=== PATIENT | female | born 1945 | race Caucasian/White ===

== ENCOUNTER 2016-10-08 13:37 | Inpatient (IN) | payer MEDICAID ==
[2016-03-30 12:30] VITALS: Ht 160 cm; Wt 74.8 kg
[~2016-10-08] VITALS: Ht 160 cm; Wt 74.8 kg
[~2016-10-08 13:37] MED LIST: AMLO5TAB4 PO; ASPI-1063 PO; ATEN100T44 PO; CAT.1 PO; CHOL500037 PO; DABI150C PO; DILT120C89 PO; FERR240T5 PO; GLU500 PO; HYDR25TA4 PO; LABE200T28 PO; LATA2.5D6 OP; LIP20 PO; LOSA100T11 PO; MEMA28CA PO; MULT-1164 PO; OMEP20CA10 PO; PRED20TA PO
[2016-10-08 13:50] VITALS: BP 200/79; PULSE 65; RESP 15; TEMP 98.3; O2SAT 98
--- NOTE | 2016-10-08 13:50 | NUR ---
Placed in room 06. Placed on engine monitor, blood pressure machine and pulse oximeter. To gown for exam. Side rails up. Report given to CHICHI Lopez
--- NOTE | 2016-10-08 13:51 | NUR ---
Dr. Camarillo at bedside for evaluation
--- NOTE | 2016-10-08 14:00 | NUR ---
pt. brought in to the ER aaoX4 from home for high BP and feeling dizzy, as per daughter pt. has been feeling weak and dizzy since yesterday and BP has been high despite taking her as prescribed medications, as per daughter pt. vomited twice yesterday and vomited this morning, denies fall, denies sob, denies headache, clear speech, on radiographer cardiac catheterization
--- NOTE | 2016-10-08 14:00 | NUR ---
Medication reconciliation completed with information provided by RX bottles brought in by daughter. Any prior medication reconciliation on file was reviewed and corrected.
[2016-10-08] MEDS ORDERED: FERR-57 PO (14:09)
[2016-10-08] MEDS ORDERED: PANT20TA2 PO (14:09)
[2016-10-08] MEDS ORDERED: AMI200 PO (14:09)
[2016-10-08] MEDS ORDERED: MEMA7CAP PO (14:09)
[2016-10-08] MEDS ORDERED: FURO-149 PO (14:09)
[2016-10-08] MEDS ORDERED: APIX2.5T PO (14:09)
[2016-10-08] MEDS ORDERED: DILT120C89 PO (14:09)
[2016-10-08] MEDS ORDERED: LOSA100T11 PO (14:09)
--- NOTE | 2016-10-08 14:11 | NUR ---
Off unit for radiology via [facility]
--- NOTE | 2016-10-08 14:25 | NUR ---
pt. back to bed 6 from radiology
--- NOTE | 2016-10-08 14:31 | NUR ---
# 20 gauge angiocath placed to lac. Use of asceptic technique. Opsite placed over site. Blood return noted. Blood for lab drawn from site. Flushed with 10 cc of normal saline. No evidence of infiltration noted. Patient tolerated well.
[2016-10-08 14:42] LABS: BASOPHILS # (AUTO) 0.2 K/uL (0.0-0.2); BASOPHILS % (AUTO) 2.9 % (0.0-2.0); EOSINOPHILS # (AUTO) 0.1 K/uL (0.0-0.4); EOSINOPHILS % (AUTO) 1.5 % (0.0-4.0); HEMOGLOBIN 11.3 g/dL (12.0-16.0); LYMPHOCYTES # (AUTO) 0.5 K/uL (1.0-5.5); LYMPHOCYTES % (AUTO) 9.2 % (20.5-51.5); MEAN CORPUSCULAR HEMOGLOBIN 32 pg (27-31); MEAN CORPUSCULAR HGB CONC 34 % (32-36); MEAN CORPUSCULAR VOLUME 94 fL (79.0-98.0); MONOCYTES # (AUTO) 0.6 K/uL (0.0-1.0); MONOCYTES % (AUTO) 10.2 % (1.7-9.3); NEUTROPHILS # (AUTO) 4.1 K/uL (1.8-7.7); NEUTROPHILS % (AUTO) 76.2 % (40.0-70.0); PLATELET COUNT (AUTO) 342 K/uL (130-430); RED BLOOD CELL COUNT(AUTO) 3.51 MIL/uL (4.2-6.2); RED CELL DISTRIBUTION WIDTH 13.8 % (9.0-15.0); WHITE BLOOD COUNT (AUTO) 5.5 K/uL (4.8-10.8)
[2016-10-08 14:52] LABS: ANION GAP 10 (5-15); CALCIUM 8.9 mg/dL (8.4-11.0); CREATININE 1.04 mg/dL (0.55-1.30); GLUCOSE 126 mg/dL (70-99); SODIUM SERUM 124 mmol/L (136-145); UREA NITROGEN, BLOOD 13 mg/dL (8-21)
[2016-10-08 14:54] LABS: INR 1.1 (0.8-1.2); PROTHROMBIN TIME 11.4 SECS (9.5-12.5)
[2016-10-08 14:59] LABS: BILIRUBIN,URINE NEGATIVE (NEGATIVE); BLOOD, URINE NEGATIVE (NEGATIVE); CLARITY/URINE CLEAR (CLEAR); COLOR,URINE YELLOW (YELLOW); GLUCOSE,URINE NEGATIVE (NEGATIVE); KETONES,URINE NEGATIVE (NEGATIVE); LEUKOCYTE ESTERASE ,URINE NEGATIVE (NEGATIVE); NITRITE, URINE NEGATIVE (NEGATIVE); PH,URINE 6.5 (5.0-8.0); PROTEIN URINE 2+ (NEGATIVE); UROBILINOGEN,URINE 0.2 (0.2-1.0)
[2016-10-08 15:07] LABS: RBC,URINE 0-3 /HPF (0-3); WBC,URINE 0-3 /HPF (0-3)
[2016-10-08 15:08] LABS: BACTERIA,URINE FEW /HPF (None Seen); MUCUS,URINE None Seen /LPF (None Seen)
[2016-10-08 15:08] LABS: ALANINE AMINOTRANSFERASE 89 U/L (12-78); ALBUMIN 3.6 g/dL (3.4-4.8); ASPARTATE AMINOTRANSFERASE 49 U/L (10-37); FREE T4 (FREE THYROXINE) 1.1 ng/dL (0.6-1.6); TOTAL BILIRUBIN 0.6 mg/dL (0.0-1.0); TOTAL PROTEIN, SERUM 7.5 g/dL (6.4-8.3)
[2016-10-08 15:10] LABS: BARBITURATE, URINE NEGATIVE (NEG <=200); BENZODIAZEPINE, URINE NEGATIVE (NEG <=150); CANNABINOID, URINE NEGATIVE (NEG <=50); COCAINE, URINE NEGATIVE (NEG <=150); METHAMPHETAMINES SCREEN,URINE NEGATIVE (NEG <=500); OPIATE, URINE NEGATIVE (NEG <=100); PHENCYCLIDINE SCREEN,URINE NEGATIVE (NEG <=25); UR TRICYCLIC ANTIDEPRESSANTS NEGATIVE (NEG <=300); URINE AMPHETAMINE NEGATIVE (NEG <=500); URINE METHADONE NEGATIVE (NEG <=200); URINE OXYCODONE SCREEN NEGATIVE (NEG <=100); URINE PROPOXYPHENE SCREEN NEGATIVE (NEG <=300)
[2016-10-08 15:12] LABS: ALCOHOL, BLOOD < 3 mg/dL (<10)
[2016-10-08 15:14] LABS: POTASSIUM 2.6 mmol/L (3.5-5.1)
[2016-10-08 15:15] LABS: CHLORIDE 81 mmol/L (98-107)
[2016-10-08] MEDS ORDERED: POTASSIUM CHLORIDE 40 MEQ in NS 250 ML IV ONE (15:30)
[2016-10-08] MEDS ORDERED: POTASSIUM CHLORIDE 20 MEQ TAB.PRT.SR PO ONE (15:30)
--- NOTE | 2016-10-08 15:55 | NUR ---
dr. baker at bedside explaining the plan of care to pt. and family
[2016-10-08] MEDS ORDERED: POTASSIUM CHLORIDE 40 MEQ in NACL 0.9% 1,000 ML IV SCH (16:30)
--- NOTE | 2016-10-08 16:30 | NUR ---
Patient will be admitted to care of dr. Moralez. Admitted to med surg unit. Will go to room 112a. Belongings list completed by ailyn ortiz. Summary report printed. Report given to michelle staley.
--- NOTE | 2016-10-08 16:53 | NUR ---
ADMISSION NOTE Received patient from ER via gurney. Patient admitted with diagnosis of low pottasium, low sodium and bdy weakness. Patient is awake, alert, oriented X 3. Patient oriented to hospital room, call light, toileting, pain management and safety-teach back done. Patient informed that Ena will be her nurse and that their room number is 112A. Personal belongings checked and Belongings List documented. Call light within reach. Due to patient langueage barrier, able to understand simple icelandic but with difficulty commnunicating in icelandic.
--- NOTE | 2016-10-08 17:00 | NUR ---
patient came from er via rney. aao x 3. afebrile vss stable. temp is 99.1 respiration is 18, heart rate 70 O2sat 97 on room air. has iv access on the left ac #20. infusing K Bk 40 meq at 67.5. oriented with the room. and surroundings including what room she is. but patient speaks no turkish and speaks north korean. assisted to the bathroom. call lights within reach safety measures maintained.
[2016-10-08 17:15] VITALS: BP 211/83; PULSE 68; RESP 17; TEMP 99.1; O2SAT 97
--- NOTE | 2016-10-08 17:40 | NUR ---
called DR Moralez regarding coughing with pheglm, as per daughter request. but no coughing noted. bp is 202/98. no headache no pain noted. spoke to Dr Moralez said. ok I will put in the orders and reconciled all medication. including iv fluids to continue.
--- NOTE | 2016-10-08 18:39 | NUR ---
patient stable. no headache nor nausea or vomitting noted.
[2016-10-08 19:00] VITALS: BP 179/79; PULSE 68; RESP 16; TEMP 99.2; O2SAT 97
--- NOTE | 2016-10-08 19:15 | NUR ---
change of shift .initial pt.assessment.language barrier extant:vietnamese. @bedside.inquired if pt;experiencing discomfort:pain,nausea.sob upon excertion.pt.states no pain nor nausea.but cough.k+rider infusing in progress. location:lt.antecubital.the iv flow is disrputed.i have apprised the pt's i will relocate the iv access. lilliam light w/in pt's reach.
--- NOTE | 2016-10-08 19:34 | NUR ---
sbar report given to incoming nurse Meliton CADET
[2016-10-08] MEDS: cloNIDine HCL 0.2 MG TABLET PO PRN (19:40)
--- NOTE | 2016-10-08 19:45 | NUR ---
i have assessed the b/p.b/p value presents elevated status.i have. administered clonodine:2mg po. Addendum: 10/09/16 at 0250 by Meliton Li RN medication:clonidine:0.2mg po was administered.
--- NOTE | 2016-10-08 19:45 | NUR ---
pt.assessed.v/s assessed.values w/in normal limits.i inquired how pt.is progressing/ stated that the pt. presents cough.p/t reentering the pt's room:i reviewed hx/emar and noted pt.presents glucophage administration and diabetes.i inquired if pt.assess blood glucose.pt.dose.@home.no dr's order 4 blood glucose assessment. i am 2 f/u re:blood glucose assessment/cough. Addendum: 10/09/16 at 0251 by Meliton Li RN b/p value was elevated.2 f/u re:prn medication:b/p:179/79.
[2016-10-08 20:00] VITALS: BP 179/79; PULSE 68; RESP 16; TEMP 99.2; O2SAT 97
--- NOTE | 2016-10-08 20:00 | NUR ---
paged for Dr Moralez, dialed . s/w Pam. Dr Jay is on-call for Dr Moralez.
--- NOTE | 2016-10-08 20:15 | NUR ---
returned the telephone call.i apprised of the pt's request for medication:cough. apprised me that she was notr familiar w/ the pt.sh was to locate and confer w/ him. returned the telephone call. i apprised of the pt's request 4 medication:cough. ordered robitussin:10ml po q-6hrs/prn cough. i apprised of the diabetes hx. ordered blood glucose:ac/hs.w/ insulin coverage.kirk meneses;rn/chg, assisted me and placed the orders.call light w/in pt's reach.
[2016-10-08] MEDS ORDERED: INSULIN REGULAR, HUMAN 100 UNITS/ML, 10 ML VIAL (novoLIN R) SUBCUT PRN (20:45)
[2016-10-08] MEDS: NACL 0.9% 1,000 ML IV SCH (20:59)
[2016-10-08] MEDS: LATANOPROST 2.5 ML DROPS (XALATAN) OP SCH (21:00)
--- NOTE | 2016-10-08 21:00 | NUR ---
2100p medications administered inclusion:robitussin:cough.blood glucose assessed:129mg/dl.call light w/in pt's reach.
[2016-10-08] MEDS: AMIODARONE HCL 200 MG TABLET PO SCH (21:01)
[2016-10-08] MEDS: MEMANTINE HCL 5 MG TABLET PO SCH (21:02)
[2016-10-08] MEDS: POTASSIUM CHLORIDE 20 MEQ TAB.PRT.SR PO SCH (21:02)
[2016-10-08] MEDS: LABETALOL HCL 100 MG TABLET PO SCH (21:03)
--- NOTE | 2016-10-08 22:00 | NUR ---
pt.assessed.pt.presents quiescent affect;calm,asleep.call light w/in pt's reach.
--- NOTE | 2016-10-08 23:00 | NUR ---
assisted pt.2 the restroom.iv access was dislodged gown stained.pt.returned 2 bed safely.gown changed. have reestablished iv access:location:rt.hand #2g.reconnected maintance iv fluids.call light placed w/in pt's reach.
[2016-10-09] VITALS: BP 155/79; PULSE 66; RESP 17; TEMP 97.7; O2SAT 97
--- NOTE | 2016-10-09 | NUR ---
pt.assessed.pt.presents quiescent affect;calm,asleep.call light w/in pt's reach.
--- NOTE | 2016-10-09 02:00 | NUR ---
pt.assessed.pt.presents quiescent affect:calm,asleep.call light w/in pt's reach.
[2016-10-09 04:00] VITALS: BP 117/76; PULSE 88; RESP 17; TEMP 98.5; O2SAT 96
--- NOTE | 2016-10-09 04:00 | NUR ---
pt.assessed.pt.repositioned self.pt.assisted 2 the restroom,returned safely per peter;doctor of veterinary medicine.iv fluids infusing. no request @this hour.
[2016-10-09] MEDS: NACL 0.9% 1,000 ML IV SCH ×3 (04:45→20:47)
--- NOTE | 2016-10-09 06:20 | NUR ---
pt.assessed.pt.repositioned self.pt.assisted 2 the restroom.pt.returned 2 bed safely.iv fluids reconnected. call light placed w/in pt's reach.no request@this hour.
--- NOTE | 2016-10-09 06:32 | NUR ---
Nutrition Update Damion Scale 18 noted. Pt admitted for hypoatremia, hypokalemia, generalized weakness. Diet: regular BMI: 29.2 kg/m2 RD to follow per nutrition care standards.
[2016-10-09 06:57] LABS: BASOPHILS % (AUTO) 0.6 % (0.0-2.0); EOSINOPHILS # (AUTO) 0.1 K/uL (0.0-0.4); EOSINOPHILS % (AUTO) 1.9 % (0.0-4.0); HEMATOCRIT 27.6 % (36-48); HEMOGLOBIN 9.7 g/dL (12.0-16.0); LYMPHOCYTES # (AUTO) 0.9 K/uL (1.0-5.5); LYMPHOCYTES % (AUTO) 16.5 % (20.5-51.5); MEAN CORPUSCULAR HEMOGLOBIN 33 pg (27-31); MEAN CORPUSCULAR HGB CONC 35 % (32-36); MEAN CORPUSCULAR VOLUME 94 fL (79.0-98.0); MONOCYTES # (AUTO) 0.8 K/uL (0.0-1.0); MONOCYTES % (AUTO) 14.6 % (1.7-9.3); NEUTROPHILS # (AUTO) 3.7 K/uL (1.8-7.7); NEUTROPHILS % (AUTO) 66.4 % (40.0-70.0); PLATELET COUNT (AUTO) 310 K/uL (130-430); RED BLOOD CELL COUNT(AUTO) 2.94 MIL/uL (4.2-6.2); WHITE BLOOD COUNT (AUTO) 5.5 K/uL (4.8-10.8)
[2016-10-09 07:16] LABS: ALANINE AMINOTRANSFERASE 77 U/L (12-78); ALBUMIN 2.9 g/dL (3.4-4.8); ANION GAP 5 (5-15); ASPARTATE AMINOTRANSFERASE 39 U/L (10-37); CALCIUM 8.5 mg/dL (8.4-11.0); CHLORIDE 92 mmol/L (98-107); CREATININE 1.01 mg/dL (0.55-1.30); GLUCOSE 87 mg/dL (70-99); PHOSPHORUS 2.9 mg/dL (2.7-4.5); POTASSIUM 3.4 mmol/L (3.5-5.1); SODIUM SERUM 128 mmol/L (136-145); TOTAL BILIRUBIN 0.5 mg/dL (0.0-1.0); TOTAL PROTEIN, SERUM 5.9 g/dL (6.4-8.3); UREA NITROGEN, BLOOD 13 mg/dL (8-21)
--- NOTE | 2016-10-09 07:58 | NUR ---
AM ROUNDS: No s/s of distress noted. Patient educated on safety precautions. Patient verbalized understanding. Will continue to monitor.
[2016-10-09 08:18] VITALS: BP 165/75; PULSE 72; RESP 20; TEMP 98.2; O2SAT 97
[2016-10-09] MEDS: MEMANTINE HCL 5 MG TABLET PO SCH ×2 (08:25→20:28)
[2016-10-09] MEDS: LOSARTAN POTASSIUM 50 MG TABLET (COZAAR) PO SCH (08:26)
[2016-10-09] MEDS: FUROSEMIDE 40 MG TABLET PO SCH (08:27)
[2016-10-09] MEDS: AMIODARONE HCL 200 MG TABLET PO SCH (08:27)
[2016-10-09] MEDS: metFORMIN HCL 500 MG TABLET PO SCH ×2 (08:27→18:05)
[2016-10-09] MEDS: POTASSIUM CHLORIDE 20 MEQ TAB.PRT.SR PO SCH ×2 (08:28→20:29)
[2016-10-09] MEDS: ATORVASTATIN 20 MG TABLET PO SCH (08:28)
[2016-10-09] MEDS: LABETALOL HCL 100 MG TABLET PO SCH ×2 (08:28→20:35)
[2016-10-09] MEDS: FERROUS SULFATE 325 MG TABLET.DR PO SCH (08:28)
[2016-10-09] MEDS ORDERED: DILTIAZEM HCL 120 MG CAP.SR.24H PO SCH (09:00)
[2016-10-09] MEDS ORDERED: APIXABAN 2.5 MG TABLET PO SCH (09:00)
[2016-10-09] MEDS ORDERED: MEMANTINE HCL 7 MG CAP.SPR.24 PO SCH (09:00)
[2016-10-09] MEDS ORDERED: MAGNESIUM SULFATE 50 ML IV ONE (09:45)
--- NOTE | 2016-10-09 09:45 | NUR ---
Cardiology consult Order received for a consult with Dr Noble for uncontrolled HTN, spoke with Wolf at the exchange. Will follow up as needed.
--- NOTE | 2016-10-09 10:07 | NUR ---
PATIENT RESTING: Patient resting quietly. No acute distress noted. Vital signs within normal range.
[2016-10-09] MEDS ORDERED: POTASSIUM CHLORIDE 40 MEQ, LIDOCAINE JECT 2% PF 100 MG 75 MG in NS 250 ML IV ONE (10:30)
[2016-10-09 12:18] VITALS: BP 138/65; PULSE 60; RESP 16; TEMP 97.6; O2SAT 97
--- NOTE | 2016-10-09 12:29 | NUR ---
PATIENT RESTING: Patient resting quietly. No acute distress noted. Vital signs within normal range.
--- NOTE | 2016-10-09 14:04 | NUR ---
PATIENT RESTING: Patient resting quietly. No acute distress noted. Vital signs within normal range.
--- NOTE | 2016-10-09 16:09 | NUR ---
PATIENT RESTING: Patient resting quietly. No acute distress noted. Vital signs within normal range.
[2016-10-09 16:10] VITALS: BP 164/75; PULSE 63; RESP 17; TEMP 97.7; O2SAT 99
--- NOTE | 2016-10-09 18:02 | NUR ---
CLOSING NOTE: All need met. No change in assessment. Will endorse to NOC shift nurse.
[2016-10-09 18:41] LABS: POTASSIUM 4.9 mmol/L (3.5-5.1)
[2016-10-09 19:50] VITALS: BP 198/89; PULSE 87; RESP 20; TEMP 97; O2SAT 97
--- NOTE | 2016-10-09 19:50 | NUR ---
NOTES; RECEIVED PT. SITTING UP IN CHAIR. A/A/O X3, FRISIAN SPEAKING. PT IS FORGETFUL. NO ACUTE DISTRESS NOTED. BLUE PHONE USED FOR TRANSLATION. REVENUE ACCOUNTING MANAGER NUMBER [id number]. INTRODUCED SELF, ORIENTED PT TO ROOM AND CALL LIGHT TO CALL FOR ANY NEED TO ASSIST. PLAN OF CARE AND MEDICATION DISCUSSED. BP FOUND TO BE 198/89, HR 87. WILL MEDICATE PT WITH SCHEDULED HTN MEDICATION. DENIES ANY PAIN AT THIS TIME. PT VERBALIZED UNDERSTANDING INSTRUCTION AND TEACHING. WITH REVENUE ACCOUNTING MANAGER. IVF INFUSING WELL ON THE RT HAND, GAUGE 24, PATENT. NO SIGNS OF INFILTRATION OR INFECTION NOTED. ASSISTED PT BACK TO BED. BED LOCKED AND IN LOW POSITION, SIDE RAILS UP X3, BED ALARM ON, CALL LIGHT WITHIN REACH. WILL CONTINUE TO MONITOR.
[2016-10-09] MEDS: APIXABAN 2.5 MG TABLET PO SCH (20:28)
[2016-10-09] MEDS: LATANOPROST 2.5 ML DROPS (XALATAN) OP SCH (20:28)
--- NOTE | 2016-10-09 20:52 | NUR ---
NOTES; BP FOUND TO BE 198/89, HR 87, LABETALOL 400MG PO ADMINISTERED FOR HTN ALONG WITH ALL DUE PO MEDS. WILL CONTINUE TO MONITOR.
--- NOTE | 2016-10-09 20:56 | NUR ---
NOTES; ROBITUSSIN-DM 10ML PO ADMINISTERED FOR COUGH.
--- NOTE | 2016-10-09 21:00 | NUR ---
NOTES; ASSISTED TO THE BATHROOM, PT HAD X1 MEDIUM SOFT BM AND VOIDED FREELY. ASSISTED BACK TO BED, GAIT STEADY.
--- NOTE | 2016-10-09 22:00 | NUR ---
NOTES; RECHECKED BP 169/73, HR 62, CHARGE NURSE NOTIFIED. PER CHARGE NURSE, RECHECK BP AT 2300 IF STILL ABOVE 160 THEN GIVE PRN BP MEDICATION.
--- NOTE | 2016-10-09 22:27 | NUR ---
NOTES; PT C/O THAT IV IS SLIGHTLY HURTING. RESTARTED NEW IV ON THE LEFT HAND, GAUGE 22, X1 TRY. ORDERED IV RESUMED. PT TOLERATED IV INSERTION WELL. WILL CONTINUE TO MONITOR.
--- NOTE | 2016-10-09 23:05 | NUR ---
NOTES; RECHECKED BP 157/80, HR 81. WILL CONTINUE TO MONITOR.
--- NOTE | 2016-10-10 | NUR ---
NOTES; APPEARED TO BE SLEEPING, EYES CLOSED. EASILY AROUSED. NO ACUTE DISTRESS NOTED. SAFETY MEASURES IN PROGRESS.
[2016-10-10] MEDS: cloNIDine HCL 0.2 MG TABLET PO PRN (03:31)
--- NOTE | 2016-10-10 03:33 | NUR ---
NOTES; BP FOUND TO BE 184/71, HR 66. CLONIDINE 0.2MG PO ADMINISTERED. WILL CONTINUE TO MONITOR.
[2016-10-10 03:37] VITALS: BP 184/71; PULSE 71; RESP 18; TEMP 97.2; O2SAT 96
--- NOTE | 2016-10-10 03:39 | NUR ---
NOTES; APPEARED TO BE SLEEPING, EYES CLOSED. EASILY AROUSED. NO ACUTE DISTRESS NOTED. SAFETY MEASURES IN PROGRESS.
[2016-10-10 04:30] VITALS: BP 160/79; PULSE 80
--- NOTE | 2016-10-10 04:30 | NUR ---
NOTES; BP 160/79, HR 80. WILL CONTINUE TO MONITOR.
--- NOTE | 2016-10-10 05:00 | NUR ---
NOTES; APPEARED TO BE SLEEPING, EYES CLOSED. EASILY AROUSED. NO ACUTE DISTRESS NOTED. SAFETY MEASURES IN PROGRESS.
[2016-10-10 06:48] LABS: BASOPHILS % (AUTO) 0.5 % (0.0-2.0); EOSINOPHILS # (AUTO) 0.2 K/uL (0.0-0.4); EOSINOPHILS % (AUTO) 3.2 % (0.0-4.0); HEMATOCRIT 27.9 % (36-48); HEMOGLOBIN 9.3 g/dL (12.0-16.0); LYMPHOCYTES # (AUTO) 0.9 K/uL (1.0-5.5); LYMPHOCYTES % (AUTO) 15.5 % (20.5-51.5); MEAN CORPUSCULAR HEMOGLOBIN 32 pg (27-31); MEAN CORPUSCULAR HGB CONC 33 % (32-36); MEAN CORPUSCULAR VOLUME 95 fL (79.0-98.0); MONOCYTES # (AUTO) 0.7 K/uL (0.0-1.0); MONOCYTES % (AUTO) 12.8 % (1.7-9.3); NEUTROPHILS # (AUTO) 3.9 K/uL (1.8-7.7); PLATELET COUNT (AUTO) 301 K/uL (130-430); RED BLOOD CELL COUNT(AUTO) 2.94 MIL/uL (4.2-6.2); RED CELL DISTRIBUTION WIDTH 14.1 % (9.0-15.0); WHITE BLOOD COUNT (AUTO) 5.7 K/uL (4.8-10.8)
--- NOTE | 2016-10-10 07:02 | NUR ---
NOTESL; RESTING QUIETLY, EASILY AROUSED. DENIES ANY PAIN, DIZZINESS OR FAINTING. IVF INFUSING WELL. ALL NEEDS ATTENDED. SAFETY MEASURES MAINTAINED.
[2016-10-10 07:17] LABS: ALANINE AMINOTRANSFERASE 68 U/L (12-78); ALBUMIN 2.9 g/dL (3.4-4.8); ANION GAP 5 (5-15); ASPARTATE AMINOTRANSFERASE 32 U/L (10-37); CALCIUM 8.4 mg/dL (8.4-11.0); CHLORIDE 97 mmol/L (98-107); CREATININE 0.85 mg/dL (0.55-1.30); GLUCOSE 90 mg/dL (70-99); PHOSPHORUS 2.4 mg/dL (2.7-4.5); POTASSIUM 4.1 mmol/L (3.5-5.1); SODIUM SERUM 129 mmol/L (136-145); TOTAL BILIRUBIN 0.4 mg/dL (0.0-1.0); TOTAL PROTEIN, SERUM 5.8 g/dL (6.4-8.3); UREA NITROGEN, BLOOD 11 mg/dL (8-21)
[2016-10-10] MEDS: POTASSIUM CHLORIDE 20 MEQ TAB.PRT.SR PO SCH (08:14)
[2016-10-10] MEDS: APIXABAN 2.5 MG TABLET PO SCH (08:14)
[2016-10-10] MEDS ORDERED: COMMUNICATION ORDER XX ONE (08:15)
[2016-10-10] MEDS: metFORMIN HCL 500 MG TABLET PO SCH (08:15)
[2016-10-10] MEDS: FERROUS SULFATE 325 MG TABLET.DR PO SCH (08:16)
[2016-10-10] MEDS: LABETALOL HCL 100 MG TABLET PO SCH (08:17)
[2016-10-10] MEDS: FUROSEMIDE 40 MG TABLET PO SCH (08:18)
[2016-10-10] MEDS: MEMANTINE HCL 5 MG TABLET PO SCH (08:18)
[2016-10-10] MEDS: ATORVASTATIN 20 MG TABLET PO SCH (08:18)
[2016-10-10] MEDS: LOSARTAN POTASSIUM 50 MG TABLET (COZAAR) PO SCH (08:21)
[2016-10-10 08:30] VITALS: BP 162/72; PULSE 63; RESP 20; TEMP 98.6; O2SAT 95
[2016-10-10] MEDS ORDERED: K PHOS 20 MM in NS 250 ML IV ONE (08:30)
--- NOTE | 2016-10-10 08:31 | NUR ---
AM ROUNDS PT SITTING UP IN BED. DENIES PAIN AT THIS TIME...HL TO RH FLUSHES WELL...IVF TO LH STOPPED PER MD ORDER..PT ESTONIAN SPEAKING, ABLE TO ANSWER SIMPLE QUESTIONS, BLUE PHONE/TRANSLATION PHONE AT BEDSIDE..CALL LIGHT/PHONE W/IN REACH...WIULL CONT TO MONITOR
--- NOTE | 2016-10-10 08:38 | NUR ---
PT ONLY ABLE TO SWALLOW ONE K+ PILL THE OTHER PILL, PT SPIT OUT AND REFUSED TO TAKE IT
[2016-10-10] MEDS ORDERED: AMIODARONE HCL 200 MG TABLET PO SCH (09:00)
[2016-10-10] MEDS ORDERED: NIFEDIPINE 60 MG TABLET.SA (PROCARDIA XL 60 MG) PO SCH (09:00)
[2016-10-10 12:00] VITALS: BP 149/69; PULSE 69; RESP 21; TEMP 97.6; O2SAT 97
--- NOTE | 2016-10-10 12:46 | NUR ---
UPDATE GIVEN TO CHICHI FERRELL AT [facility]
--- NOTE | 2016-10-10 12:46 | NUR ---
OOB IN CHAIR PT COMFORTABLE...IN CHAIR VISITING WITH ...WILL CONT TO MILANA
[2016-10-10] MEDS ORDERED: NIFEDIPINE 30 MG TAB.ER.24 PO ONE (15:00)
[2016-10-10 15:35] VITALS: BP 119/57; PULSE 63; RESP 20; TEMP 98.6; O2SAT 96
[2016-10-10 16:08] VITALS: BP 122/64; PULSE 61
--- NOTE | 2016-10-10 16:09 | NUR ---
D/C Patient Patient given medication reconciliation form and D/C instructions. Exit Care provided. Patient AND DAUGHTER verbalized understanding. MD discussed with patient the results and treatment provided. Ambulatory with steady gait for discharge to home. Patient in stable condition, ID band removed. IV catheter removed, intact and dressing applied, no active bleeding. Patient educated on pain management. All belongings sent with patient.PT STABLE UPON DC
[2016-10-11] MEDS ORDERED: NIFEDIPINE 90 MG TABLET.SA (PROCARDIA XL 90 MG) PO SCH (09:00)
--- NOTE | 2016-10-18 15:33 | NUR ---
Discharge Follow Up Phone Call [employer] phoned patient, , on 10/11/16, 10/14/16, and 10/18/16 and left voicemail messages with offer of assistance and Social Service contact information. No further calls will be attempted.
== END 2016-10-10 16:05 | disposition home or self-care (01) | DRG 194 ==
LOC: SED 13:37 → SMU 16:18
PROVIDERS: ADMIT Internal Medicine; ATTEND Internal Medicine Hospice and Palliative Medicine
DX: I11.0 Hypertensive heart disease with heart failure (principal); F03.90 Unspecified dementia, unspecified severity, without behavioral disturbance, psychotic disturbance, mood disturbance, and anxiety; E87.1 Hypo-osmolality and hyponatremia; I48.91 Unspecified atrial fibrillation; I50.32 Chronic diastolic (congestive) heart failure; E11.9 Type 2 diabetes mellitus without complications; E87.6 Hypokalemia; E83.42 Hypomagnesemia; W18.39XA Other fall on same level, initial encounter; Y93.89 Activity, other specified; Y92.89 Other specified places as the place of occurrence of the external cause; Y99.8 Other external cause status; Z95.0 Presence of cardiac pacemaker
CPT/HCPCS: 36415; 71010; 74000-TC; 80053; 80307; 81000-TC; 82140-TC; 82962; 83605; 83735-TC; 83880; 84100-TC; 84132-TC; 84439; 84484; 85025; 85610-TC; 87040-TC; 93005; 99285; G0482; J1815; J3475; J3480; J7030; J7050

== ENCOUNTER 2016-10-20 16:56 | Emergency (ER) | payer MEDICAID ==
[2016-03-30 12:30] VITALS: Ht 157.5 cm; Wt 74.8 kg
[~2016-10-20] VITALS: Ht 157.5 cm; Wt 74.8 kg
[~2016-10-20 16:56] MED LIST changes: +AMI200 PO; +APIX2.5T PO; +FERR-57 PO; +FURO-149 PO; +MEMA7CAP PO; +PANT20TA2 PO
[2016-10-20 16:59] VITALS: BP 157/111; PULSE 70; RESP 16; TEMP 97.6; O2SAT 97
--- NOTE | 2016-10-20 17:04 | NUR ---
Patient triaged and placed in waiting room. Patient appears in no acute distress at this time. Accompanied by DAUGHTER, awaiting available bed, and MD notified of need for MSE.
[2016-10-20 17:07] VITALS: BP 152/79; PULSE 70; RESP 16; TEMP 97.6; O2SAT 97
--- NOTE | 2016-10-20 17:08 | NUR ---
Patient BP retaken and it is 152/79. Patient daughter states "Its better I want to take her home." Patient and daughter made aware the possible worsening condition and strongly urged for physician evaluation but states "I have been having a hard time and I am here every two weeks. She is ok and I will take her home" Patient advised to return or call 911 for any new or worsening conditions
== END 2016-10-20 17:08 | disposition left against medical advice (07) ==
LOC: SED 16:56
DX: I10 Essential (primary) hypertension (principal); Z53.21 Procedure and treatment not carried out due to patient leaving prior to being seen by health care provider

== ENCOUNTER 2016-10-22 18:56 | Inpatient (IN) | payer MEDICAID ==
[2016-03-30 12:30] VITALS: Ht 167.6 cm; Wt 78.0 kg
[~2016-10-22] VITALS: Ht 167.6 cm; Wt 78.0 kg
[2016-10-22 18:56] VITALS: BP 141/76; PULSE 70; RESP 17; TEMP 97.8; O2SAT 98
--- NOTE | 2016-10-22 18:56 | NUR ---
Placed in room 06. Placed on athletic monitor, blood pressure machine and pulse oximeter. To gown for exam. Side rails up. Report given to CHICHI Marvin.
--- NOTE | 2016-10-22 19:00 | NUR ---
ER at bedside examining patient.
--- NOTE | 2016-10-22 19:00 | NUR ---
Pt brought in by BLS transport in stable condition. Per family, witnessed syncopal episode while sitting in chair. -trauma -SOB -chest pain. No obvious sign of trauma noted. Pt does have hx of syncopal episode, HTN, DM, A-fib, GERD, hyperlipidemia. Placed pt on welfare worker. No acute distress noted at this time, will continue to monitor
[2016-10-22 19:25] LABS: BASOPHILS % (AUTO) 0.8 % (0.0-2.0); EOSINOPHILS # (AUTO) 0.1 K/uL (0.0-0.4); EOSINOPHILS % (AUTO) 2.5 % (0.0-4.0); HEMATOCRIT 30.9 % (36-48); HEMOGLOBIN 10.5 g/dL (12.0-16.0); LYMPHOCYTES # (AUTO) 0.6 K/uL (1.0-5.5); LYMPHOCYTES % (AUTO) 9.6 % (20.5-51.5); MEAN CORPUSCULAR HEMOGLOBIN 32 pg (27-31); MEAN CORPUSCULAR HGB CONC 34 % (32-36); MEAN CORPUSCULAR VOLUME 96 fL (79.0-98.0); MONOCYTES # (AUTO) 0.6 K/uL (0.0-1.0); MONOCYTES % (AUTO) 9.7 % (1.7-9.3); NEUTROPHILS # (AUTO) 4.5 K/uL (1.8-7.7); NEUTROPHILS % (AUTO) 77.4 % (40.0-70.0); PLATELET COUNT (AUTO) 360 K/uL (130-430); RED BLOOD CELL COUNT(AUTO) 3.23 MIL/uL (4.2-6.2); RED CELL DISTRIBUTION WIDTH 12.9 % (9.0-15.0); WHITE BLOOD COUNT (AUTO) 5.8 K/uL (4.8-10.8)
[2016-10-22 19:34] LABS: ANION GAP 6 (5-15); CALCIUM 8.8 mg/dL (8.4-11.0); CHLORIDE 85 mmol/L (98-107); CREATININE 1.39 mg/dL (0.55-1.30); GLUCOSE 124 mg/dL (70-99); POTASSIUM 3.7 mmol/L (3.5-5.1); SODIUM SERUM 123 mmol/L (136-145); UREA NITROGEN, BLOOD 19 mg/dL (8-21)
[2016-10-22 19:38] LABS: ALANINE AMINOTRANSFERASE 108 U/L (12-78); ALBUMIN 3.3 g/dL (3.4-4.8); ASPARTATE AMINOTRANSFERASE 54 U/L (10-37); TOTAL BILIRUBIN 0.3 mg/dL (0.0-1.0); TOTAL PROTEIN, SERUM 6.7 g/dL (6.4-8.3)
[2016-10-22] MEDS ORDERED: NACL 0.9% 1,000 ML IV ONE ×2 (20:30→22:30)
[2016-10-22 22:13] LABS: BILIRUBIN,URINE NEGATIVE (NEGATIVE); BLOOD, URINE NEGATIVE (NEGATIVE); CLARITY/URINE CLEAR (CLEAR); COLOR,URINE YELLOW (YELLOW); GLUCOSE,URINE NEGATIVE (NEGATIVE); KETONES,URINE NEGATIVE (NEGATIVE); LEUKOCYTE ESTERASE ,URINE 1+ (NEGATIVE); NITRITE, URINE NEGATIVE (NEGATIVE); PROTEIN URINE NEGATIVE (NEGATIVE); UROBILINOGEN,URINE 0.2 (0.2-1.0)
[2016-10-22 22:31] LABS: BACTERIA,URINE FEW /HPF (None Seen); RBC,URINE 0-3 /HPF (0-3)
[2016-10-22 22:33] LABS: MUCUS,URINE None Seen /LPF (None Seen)
[2016-10-22] MEDS ORDERED: SODIUM CHLORIDE 3% *HI-ALERT* 500 ML IV ONE (22:45)
--- NOTE | 2016-10-22 22:48 | NUR ---
ADMISSION NOTE Received patient from ER via gurjuana, received report from RN. Patient admitted with diagnosis of HYPONATREMIA.
--- NOTE | 2016-10-22 22:48 | NUR ---
Patient will be admitted to care of Dr. Gomez. Admitted to tele unit. Will go to room 101-B. Belongings list completed. Summary report printed. Report given to CHICHI Marin.
[2016-10-22 22:59] VITALS: BP 153/54; PULSE 67; RESP 18; TEMP 97.1; O2SAT 97
--- NOTE | 2016-10-22 23:15 | NUR ---
pt.recieved as admission.pt.pt.presents stable status.v/s are stable.pt.had c/o syncope@home;pt;s labs presents hypo-natremia:na+123,hypokalemic:k+3.2,lactic acid:2.7 initial level.f/u level pending.pt.stable status:room air. pt.presents hx:diabetes.f/u w/blood glucose assessment.diet:con/cho.no c/o pain.language barrier extant: syriac.call light placed w/in pt's reach.
[2016-10-22 23:29] LABS: ANION GAP 4 (5-15); CHLORIDE 93 mmol/L (98-107); CREATININE 1.22 mg/dL (0.55-1.30); GLUCOSE 110 mg/dL (70-99); POTASSIUM 3.2 mmol/L (3.5-5.1); SODIUM SERUM 126 mmol/L (136-145); UREA NITROGEN, BLOOD 17 mg/dL (8-21)
[2016-10-22 23:30] VITALS: BP 153/54; PULSE 66; RESP 18; TEMP 97.1; O2SAT 98
--- NOTE | 2016-10-22 23:45 | NUR ---
ns:3% initiated.pt.had recieved 2litres:ns in the er-dept.na+:123 value.iv access :Location:rt.upper arm.
[2016-10-22 23:49] VITALS: BP 148/48; PULSE 63; RESP 16; TEMP 97.2; O2SAT 96
--- NOTE | 2016-10-23 | NUR ---
pt.assessed.pt.presents quiescent affect;calm,asleep.call light placed w/in pt's reach. iv fluids:ns:3% infusing.
--- NOTE | 2016-10-23 01:00 | NUR ---
pt.assessed.iv fluids:ns:3% assessed.no request @this hour.call light w/in pt's reach. Addendum: 10/23/16 at 0410 by Meliton Li RN iv acces line re-enforced:iv apparently was leaking.
--- NOTE | 2016-10-23 02:00 | NUR ---
pt.assessed.pt.presents quiescent affect;calm,asleep.call light w/in pt.s reach.ns:3% infusing.call light w/in pt's reach.
--- NOTE | 2016-10-23 03:00 | NUR ---
pt.requested assistance 2 the restroom.i have assisted the pt.and returned the pt.2 bed safely. call light placed w/in pt's reach.
--- NOTE | 2016-10-23 04:00 | NUR ---
pt.assessed.pt.presents quiescent affect;calm,asleep.iv fluids:ns3% infusing.call light w/in pt's reach. no discomfort/distress manifested.
[2016-10-23 04:14] VITALS: BP 185/72; PULSE 70; RESP 16; TEMP 97.2; O2SAT 97
[2016-10-23 06:38] LABS: EOSINOPHILS # (AUTO) 0.1 K/uL (0.0-0.4); LYMPHOCYTES # (AUTO) 0.8 K/uL (1.0-5.5); MONOCYTES # (AUTO) 0.8 K/uL (0.0-1.0); MONOCYTES % (AUTO) 14.1 % (1.7-9.3); RED CELL DISTRIBUTION WIDTH 12.9 % (9.0-15.0)
--- NOTE | 2016-10-23 06:48 | NUR ---
assisted pt.2 the restroom.returned pt.2 bed safely.iv re-connected:3% infusing.provided snack 2 pt. blood glucose:87mg/dl this am.call light placed w/in pt's reach.
[2016-10-23 06:52] LABS: BASOPHILS % (AUTO) 0.5 % (0.0-2.0); EOSINOPHILS % (AUTO) 1.9 % (0.0-4.0); HEMATOCRIT 28.5 % (36-48); HEMOGLOBIN 9.5 g/dL (12.0-16.0); LYMPHOCYTES % (AUTO) 15.1 % (20.5-51.5); MEAN CORPUSCULAR HEMOGLOBIN 32 pg (27-31); MEAN CORPUSCULAR HGB CONC 33 % (32-36); MEAN CORPUSCULAR VOLUME 97 fL (79.0-98.0); NEUTROPHILS # (AUTO) 3.8 K/uL (1.8-7.7); NEUTROPHILS % (AUTO) 68.4 % (40.0-70.0); PLATELET COUNT (AUTO) 327 K/uL (130-430); RED BLOOD CELL COUNT(AUTO) 2.95 MIL/uL (4.2-6.2); WHITE BLOOD COUNT (AUTO) 5.5 K/uL (4.8-10.8)
--- NOTE | 2016-10-23 07:35 | NUR ---
am rounds pt. still sleeping, IV of 3% NS infusing at 25 ml/hr via rt. ac., in no acute distress.
[2016-10-23 07:59] LABS: THYROID STIMULATING HORMONE 0.52 uIu/mL (0.34-4.82)
[2016-10-23 08:12] VITALS: BP 166/69; PULSE 64; RESP 18; TEMP 98.3; O2SAT 94
--- NOTE | 2016-10-23 09:00 | NUR ---
pt. assisted on bedside commode and voided.encouraged to eat. schedule meds to be given, rechecked BP 169/66 HR 66.
[2016-10-23] MEDS: APIXABAN 2.5 MG TABLET PO SCH (09:02)
[2016-10-23] MEDS: AMIODARONE HCL 200 MG TABLET PO SCH ×2 (09:04→20:34)
[2016-10-23] MEDS: DILTIAZEM HCL 120 MG CAP.SR.24H PO SCH (09:05)
[2016-10-23] MEDS: LABETALOL HCL 100 MG TABLET PO SCH ×2 (09:09→20:35)
--- NOTE | 2016-10-23 10:30 | NUR ---
pt. resting, at bedside., needs attended, able to ambulate to restroom. Addendum: 10/23/16 at 1409 by Joyce Javed RN charted on the wrong pt.
[2016-10-23] MEDS ORDERED: POTASSIUM CHLORIDE 20 MEQ/PKT PACKET PO ONE (11:00)
--- NOTE | 2016-10-23 11:00 | NUR ---
pt. at bedside, pt. resting comfortably.
[2016-10-23] MEDS ORDERED: MEMANTINE HCL 5 MG TABLET PO ONE (11:30)
[2016-10-23 12:00] VITALS: BP_SYST 155; BP_SYST 187; BP_DIAS 74; BP_DIAS 84; PULSE 62; RESP 21; TEMP 98.9; O2SAT 98
[2016-10-23] MEDS: INSULIN REGULAR, HUMAN 100 UNITS/ML, 10 ML VIAL (novoLIN R) SUBCUT PRN ×2 (12:05→20:41)
--- NOTE | 2016-10-23 12:42 | NUR ---
paged: called dr cuellar for il=[id number]/ ,spoke to exchange altaf.
--- NOTE | 2016-10-23 12:50 | NUR ---
Consult called for Dr Jay spoke to Makenzie at the exchange
[2016-10-23] MEDS: cloNIDine HCL 0.1 MG TABLET PO PRN ×2 (13:19→23:23)
[2016-10-23] MEDS: cefTRIAXone 1 GM in D5W 50 ML IV SCH (13:37)
--- NOTE | 2016-10-23 14:00 | NUR ---
pt. sleeping when checked, remained at bedside.
--- NOTE | 2016-10-23 15:45 | NUR ---
pt. awake, sitting up in chair with at bedside.
[2016-10-23 16:00] VITALS: BP 188/83; PULSE 64; RESP 21; TEMP 96.8; O2SAT 98
--- NOTE | 2016-10-23 17:00 | NUR ---
pt. sleeping, awakened to check blood sugar.IV keep patent.
--- NOTE | 2016-10-23 17:57 | NUR ---
pt. had dinner , ate about 25 %. informed about urine specimen needed for test. nodded head. pt. remained at bedside, no complaints manifested.
--- NOTE | 2016-10-23 18:45 | NUR ---
pt. awake and resting, informed about change of shift, denies any pain IVF still infusing. Mireya RN will endorse pt. to incoming shift.
[2016-10-23 19:50] VITALS: BP 178/85; PULSE 66; RESP 15; TEMP 98.5
--- NOTE | 2016-10-23 20:25 | NUR ---
OPENING NOTES PATIENT IS IN BED RESTING. NO SIGNS OF DISTRESS. BREATHING IS NON LABORED. PATIENT HAS NO COMPLAINT OF PAIN. IV IS PATENT AND SHOWS NO SIGNS OF COMPLICATION. COMMODE IS AT BEDSIDE. PATIENT IS INSTRUCTED TO CALL FOR ASSISTANCE. CALL LIGHT IS WITHIN REACH. WILL CONTINUE TO MONITOR.
[2016-10-23] MEDS: LATANOPROST 2.5 ML DROPS (XALATAN) OP SCH (20:33)
[2016-10-23] MEDS: MEMANTINE HCL 5 MG TABLET PO SCH (20:35)
--- NOTE | 2016-10-23 21:40 | NUR ---
ROUNDS PATIENT WAS ASSISTED TO THE COMMODE AND BACK INTO BED.
--- NOTE | 2016-10-23 23:20 | NUR ---
HIGH BLOOD PRESSURE READING PATIENT BLOOD PRESSURES IS 161/79. WILL GIVE PRN CLONIDINE.
--- NOTE | 2016-10-23 23:50 | NUR ---
ROUNDS PATIENT WAS ASSISTED ON AND OFF THE BEDSIDE COMMODE.
--- NOTE | 2016-10-24 00:25 | NUR ---
BLOOD PRESSURE REASSESSMENT PATIENT BLOOD PRESSURE WAS REASSESSED. BLOOD PRESSURE WAS 143/76.
[2016-10-24 00:42] VITALS: BP 161/79; PULSE 92; RESP 19; TEMP 97.7; O2SAT 96
--- NOTE | 2016-10-24 03:15 | NUR ---
ROUNDS PATIENT IS IN BED SLEEPING. NO SIGNS OF DISTRESS. BREATHING IS NON LABORED. CALL LIGHT IS WITHIN REACH. BED ALARM IS ON. WILL CONTINUE TO MONITOR.
[2016-10-24 04:00] VITALS: BP 162/70; PULSE 67; RESP 18; TEMP 97.8; O2SAT 95
--- NOTE | 2016-10-24 05:20 | NUR ---
ROUNDS PATIENT IS IN BED SLEEPING. NO SIGNS OF DISTRESS. BREATHING IS NON LABORED. ALL LIGHT IS WITHIN REACH. BED ALARM IS ON. WILL CONTINUE TO MONITOR.
--- NOTE | 2016-10-24 06:54 | NUR ---
CLOSING NOTES PATIENT IS IN BED SLEEPING. NO SIGNS OF DISTRESS. BREATHING IS NON LABORED. IV IS PATENT AND SHOWS NO SIGNS OF COMPLICATION. CALL LIGHT IS WITHIN REACH. BED ALARM IS ON. WILL ENDORSE CARE TO THE MORNING NURSE.
[2016-10-24 07:17] LABS: ALANINE AMINOTRANSFERASE 91 U/L (12-78); ALBUMIN 2.9 g/dL (3.4-4.8); ANION GAP 5 (5-15); ASPARTATE AMINOTRANSFERASE 45 U/L (10-37); CALCIUM 8.8 mg/dL (8.4-11.0); CHLORIDE 97 mmol/L (98-107); GLUCOSE 88 mg/dL (70-99); POTASSIUM 3.4 mmol/L (3.5-5.1); SODIUM SERUM 132 mmol/L (136-145); THYROID STIMULATING HORMONE 0.86 uIu/mL (0.34-4.82); TOTAL BILIRUBIN 0.4 mg/dL (0.0-1.0); TOTAL PROTEIN, SERUM 5.9 g/dL (6.4-8.3); UREA NITROGEN, BLOOD 12 mg/dL (8-21)
[2016-10-24] MEDS ORDERED: MEMANTINE HCL 7 MG CAP.SPR.24 PO SCH (09:00)
[2016-10-24] MEDS: MEMANTINE HCL 5 MG TABLET PO SCH ×2 (09:32→21:06)
[2016-10-24] MEDS: ATORVASTATIN 20 MG TABLET PO SCH (09:32)
[2016-10-24] MEDS: FERROUS SULFATE 325 MG TABLET.DR PO SCH (09:32)
--- NOTE | 2016-10-24 09:43 | NUR ---
Medication pass. Patient needs met.
[2016-10-24 09:46] VITALS: BP 181/79; PULSE 61; RESP 18; TEMP 96.2; O2SAT 98
[2016-10-24] MEDS: AMIODARONE HCL 200 MG TABLET PO SCH ×2 (09:49→21:05)
[2016-10-24] MEDS: DILTIAZEM HCL 120 MG CAP.SR.24H PO SCH (09:50)
[2016-10-24] MEDS: LABETALOL HCL 100 MG TABLET PO SCH ×2 (09:50→21:06)
[2016-10-24] MEDS: APIXABAN 2.5 MG TABLET PO SCH (09:50)
[2016-10-24] MEDS: LOSARTAN POTASSIUM 50 MG TABLET (COZAAR) PO SCH (09:51)
--- NOTE | 2016-10-24 11:41 | NUR ---
Provider rounds. Retake of blood pressure requested. Called provider to notify of reading. Suggests compression stockings.
[2016-10-24 12:00] VITALS: BP 144/83; PULSE 67; RESP 21; TEMP 96.4; O2SAT 99
--- NOTE | 2016-10-24 13:19 | NUR ---
Consult Order received for a consult with Dr Rios. Dr. Mas is pineapple plantation manager. Spoke with Lilian at the exchange. Will follow up as needed.
[2016-10-24] MEDS: cefTRIAXone 1 GM in D5W 50 ML IV SCH (13:28)
--- NOTE | 2016-10-24 13:59 | NUR ---
Placed compression stockings. Patient refused per NOEMI Bear. Removed. Addendum: 10/24/16 at 1400 by Kade Mas RN Amended: Links added.
--- NOTE | 2016-10-24 14:40 | NUR ---
Charge nurse notes largest compression stocking available as provider suggested extra large stocking.
[2016-10-24 14:57] VITALS: BP 186/75; PULSE 75
[2016-10-24] MEDS: cloNIDine HCL 0.1 MG TABLET PO PRN (14:57)
[2016-10-24 15:26] VITALS: BP 184/62; PULSE 73; RESP 19; TEMP 97.2; O2SAT 99
--- NOTE | 2016-10-24 19:55 | NUR ---
OPENING NOTES PATIENT IS A/OX3. FAMILY IS AT BEDSIDE. BREATHING IS NON LABORED. NO SIGNS OF DISTRESS. VITAL SIGNS ARE STABLE. PATIENT HAS NO COMPLAINTS OF PAIN. FAMILY IS TRANSLATING. CALL LIGHT IS WITHIN REACH. BED ALARM IS ON. PATIENT INSTRUCTED TO CALL FOR ASSISTANCE. WILL CONTINUE TO MONITOR.
[2016-10-24] MEDS: hydrALAZINE HCL 10 MG TABLET PO SCH (21:04)
[2016-10-24] MEDS: LATANOPROST 2.5 ML DROPS (XALATAN) OP SCH (21:06)
--- NOTE | 2016-10-24 21:40 | NUR ---
DR. MENDEZ CALLED INQUIRING IF DR. BERNARDO OR DIANNA ROUND. READ MD THE NOTES FROM THE CHART THAT DOCTOR DIANNA WROTE.
--- NOTE | 2016-10-24 23:10 | NUR ---
ROUNDS PATIENT WAS ASSISTED TO THE BEDSIDE COMMODE AND BACK INTO BED. PATIENT WAS GIVEN ICE WATER. PATIENT IS RESTING COMFORTABLY IN BED.
[2016-10-25] VITALS (8 sets, daily range): BP systolic 151–203; BP diastolic 54–84; PULSE 59–82; RESP 16–20; TEMP 96.6–98.5; O2SAT 97–100
--- NOTE | 2016-10-25 01:25 | NUR ---
ROUNDS PATIENT WAS ASSISTED TO THE BEDSIDE AND BACK INTO BED. PATIENT IS RESTING COMFORTABLY IN BED. CALL LIGHT IS WITHIN REACH. BED ALARM IS ON. WILL CONTINUE TO MONITOR.
[2016-10-25 07:20] LABS: BASOPHILS % (AUTO) 0.7 % (0.0-2.0); EOSINOPHILS # (AUTO) 0.2 K/uL (0.0-0.4); EOSINOPHILS % (AUTO) 3.8 % (0.0-4.0); HEMOGLOBIN 9.3 g/dL (12.0-16.0); LYMPHOCYTES # (AUTO) 0.7 K/uL (1.0-5.5); LYMPHOCYTES % (AUTO) 14.2 % (20.5-51.5); MEAN CORPUSCULAR HEMOGLOBIN 33 pg (27-31); MEAN CORPUSCULAR HGB CONC 34 % (32-36); MEAN CORPUSCULAR VOLUME 96 fL (79.0-98.0); MONOCYTES # (AUTO) 0.7 K/uL (0.0-1.0); MONOCYTES % (AUTO) 13.4 % (1.7-9.3); NEUTROPHILS # (AUTO) 3.6 K/uL (1.8-7.7); NEUTROPHILS % (AUTO) 67.9 % (40.0-70.0); PLATELET COUNT (AUTO) 309 K/uL (130-430); RED BLOOD CELL COUNT(AUTO) 2.81 MIL/uL (4.2-6.2); RED CELL DISTRIBUTION WIDTH 12.9 % (9.0-15.0); WHITE BLOOD COUNT (AUTO) 5.2 K/uL (4.8-10.8)
[2016-10-25 07:32] LABS: ALANINE AMINOTRANSFERASE 85 U/L (12-78); ANION GAP 7 (5-15); ASPARTATE AMINOTRANSFERASE 38 U/L (10-37); CALCIUM 8.9 mg/dL (8.4-11.0); CHLORIDE 95 mmol/L (98-107); CREATININE 0.98 mg/dL (0.55-1.30); GLUCOSE 97 mg/dL (70-99); SODIUM SERUM 131 mmol/L (136-145); TOTAL BILIRUBIN 0.4 mg/dL (0.0-1.0); TOTAL PROTEIN, SERUM 6.1 g/dL (6.4-8.3); UREA NITROGEN, BLOOD 13 mg/dL (8-21)
--- NOTE | 2016-10-25 07:49 | NUR ---
AM Rounds: Received pt laying flat in bed and sleeping. No acute signs of distress noted. IV intact to with no redness or swelling noted to site. Call light in reach. Breathing even and unlabored on room air. Bed alarm on. Continue to monitor.
[2016-10-25 08:00] LABS: POTASSIUM 2.7 mmol/L (3.5-5.1)
--- NOTE | 2016-10-25 08:20 | NUR ---
Page Dr. Turner: Page Dr. Turner regarding critical value Awaiting page back. Addendum: 10/25/16 at 0846 by Nasreen Elmore RN wrong patient--please disregard this note
[2016-10-25] MEDS ORDERED: POTASSIUM CHLORIDE 20 MEQ TAB.PRT.SR PO ONE (08:45)
[2016-10-25] MEDS ORDERED: COMMUNICATION ORDER XX ONE (08:45)
--- NOTE | 2016-10-25 08:45 | NUR ---
Second Page Dr. Turner: Second page Dr. Turner regarding critical value. Addendum: 10/25/16 at 0846 by Nasreen Elmore RN wrong patient--please disregard this note
[2016-10-25] MEDS: MEMANTINE HCL 5 MG TABLET PO SCH ×2 (08:56→20:38)
[2016-10-25] MEDS: FERROUS SULFATE 325 MG TABLET.DR PO SCH (08:57)
[2016-10-25] MEDS: AMIODARONE HCL 200 MG TABLET PO SCH ×2 (08:58→20:40)
[2016-10-25] MEDS: APIXABAN 2.5 MG TABLET PO SCH (08:58)
[2016-10-25] MEDS: ATORVASTATIN 20 MG TABLET PO SCH (08:59)
[2016-10-25] MEDS: LOSARTAN POTASSIUM 50 MG TABLET (COZAAR) PO SCH (08:59)
[2016-10-25] MEDS ORDERED: POTASSIUM CHLORIDE 40 MEQ in NS 250 ML IV ONE (09:00)
[2016-10-25] MEDS: DILTIAZEM HCL 120 MG CAP.SR.24H PO SCH (09:00)
[2016-10-25] MEDS: LABETALOL HCL 100 MG TABLET PO SCH ×2 (09:01→20:39)
[2016-10-25] MEDS: hydrALAZINE HCL 10 MG TABLET PO SCH (09:04)
--- NOTE | 2016-10-25 09:05 | NUR ---
RN Rounds/Dr. Rios Here AM meds given per MD order. Pt tolerates well. Dr. Rios here to see patient. Per Dr. Rios patient will stay one more day to better regulate BP. made aware.
[2016-10-25 10:13] LABS: URINE SODIUM, RANDOM 53 mmol/L (40-220)
[2016-10-25] MEDS: cefTRIAXone 1 GM in D5W 50 ML IV SCH (11:20)
--- NOTE | 2016-10-25 11:22 | NUR ---
Rounds: Pt laying flat in bed and resting. No acute signs of distress noted. IV potassium infusing well at this time. Pt denies pain and SOB. at bedside. Call light in reach. Bed alarm on. No other needs noted. Continue to monitor.
--- NOTE | 2016-10-25 13:08 | NUR ---
Rounds: Pt sitting semi-fowlers in bed. No acute signs of distress noted at this time. IV intact to RUE with no redness or swelling noted to site. Call light in reach. Continue to monitor. Dr. Turner here to see patient, he is aware that Dr. Rios wants to hold discharge until tomorrow.
--- NOTE | 2016-10-25 14:06 | NUR ---
CONSULT NEUROLOGY FALLS DR HERNANDEZ [phone] S/W CHARLES EXCHANGE @ 0611
[2016-10-25] MEDS: cloNIDine HCL 0.1 MG TABLET PO PRN ×2 (15:30→23:45)
--- NOTE | 2016-10-25 15:31 | NUR ---
Rounds: Pt sitting semi-fowlers in bed. Medicated for elevated BP 187/71. Pt tolerates well. Pt denies pain and lightheadedness at this time. Call light in reach. Fall precautions in place. Continue to monitor.
--- NOTE | 2016-10-25 17:05 | NUR ---
Page Dr. Rios/Dr. Pierre Here: Page Dr. Rios for pt's elevated BP. Awaiting page back at this time. Dr. Pierre here to see patient--recommend follow up outpatient for further testing. No new orders noted.
--- NOTE | 2016-10-25 17:40 | NUR ---
Dr. Mas Page Back: Dr. Mas page back, aware of pt's BP 193/80 and that patient received Clonidine earlier for elevated BP and that it was ineffective. Dr. Mas states "Ok, we'll just watch her for now". No new orders for BP meds noted.
--- NOTE | 2016-10-25 18:34 | NUR ---
Closing Note: Pt sitting semi-fowlers in bed and watching TV. No acute signs of distress noted at this time. IV intact to RUE. Pt denies pain. No other needs noted at this time. Call light in reach. Fall precautions in place. Endorse plan of care to GHANSHYAM RN.
--- NOTE | 2016-10-25 19:30 | NUR ---
notes received the pt fr+om the day nurse,pt awake alert aribec speaking only , is at the bedside.no c/o pain or discomfort.call light within reach,safety measures in progress.iv to rt forearm intact ,no redness or swelling noted.will continue to monitor.
[2016-10-25] MEDS: LATANOPROST 2.5 ML DROPS (XALATAN) OP SCH (20:38)
[2016-10-25] MEDS: hydrALAZINE HCL 25 MG TABLET PO SCH (20:39)
[2016-10-25] MEDS ORDERED: hydrALAZINE HCL 25 MG TABLET PO SCH (21:00)
--- NOTE | 2016-10-25 21:17 | NUR ---
notes pt resting with no complaints.accucheck was 130,no insulin needed per s/s.call light within reach.
--- NOTE | 2016-10-25 23:47 | NUR ---
NOTES CLONIDINE 0.1MG GIVEN PO FOR A BP OF 174/73.CONTINUE TO MONITOR.
[2016-10-26 00:50] VITALS: BP 174/73; PULSE 61; RESP 17; TEMP 97.8; O2SAT 98
--- NOTE | 2016-10-26 00:58 | NUR ---
NOTES PT ASSISTED UP TO THE COMMODE,VOIDED AND HELPED BACK TO BED.
--- NOTE | 2016-10-26 01:44 | NUR ---
NOTES PT SLEEPING ,NO DISTRESS NOTED.CONTINUE TO MONITOR.
--- NOTE | 2016-10-26 03:40 | NUR ---
NOTES PT SLEEPING,NO DISTRESS NOTED.CONTINUE TO MONITOR.
[2016-10-26 04:30] VITALS: BP 149/72; PULSE 68; RESP 18; TEMP 97.8; O2SAT 98
--- NOTE | 2016-10-26 05:31 | NUR ---
NOTES PT SLEEPING,CALL LIGHT WITHIN REACH.CONTINUE TO MONITOR
--- NOTE | 2016-10-26 06:32 | NUR ---
CLOSING NOTES PT AWAKEN FOR ACCUCHECK THAT WAS99.EVIDENCE TECHNICIAN AT THE BEDSIDE TO DRAW BLOOD.WILL ENDORSE THE CARE OF THE PT TO THE DAY NURSE.
[2016-10-26 07:15] LABS: ALANINE AMINOTRANSFERASE 74 U/L (12-78); ANION GAP 6 (5-15); ASPARTATE AMINOTRANSFERASE 30 U/L (10-37); CALCIUM 8.9 mg/dL (8.4-11.0); CHLORIDE 97 mmol/L (98-107); CREATININE 0.95 mg/dL (0.55-1.30); GLUCOSE 96 mg/dL (70-99); POTASSIUM 3.5 mmol/L (3.5-5.1); SODIUM SERUM 133 mmol/L (136-145); TOTAL BILIRUBIN 0.4 mg/dL (0.0-1.0); TOTAL PROTEIN, SERUM 6.3 g/dL (6.4-8.3); UREA NITROGEN, BLOOD 15 mg/dL (8-21)
--- NOTE | 2016-10-26 07:53 | NUR ---
AM Rounds: Received pt sitting semi-fowlers in bed and sleeping. NO acute signs of distress noted. IV intact to LUE with no redness or swelling noted to site. Fall precautions in place. Call light in reach. Continue to monitor.
[2016-10-26 08:24] VITALS: BP 144/79; PULSE 62; RESP 19; TEMP 98; O2SAT 98
[2016-10-26] MEDS: MEMANTINE HCL 5 MG TABLET PO SCH (09:26)
[2016-10-26] MEDS: APIXABAN 2.5 MG TABLET PO SCH (09:26)
[2016-10-26] MEDS: AMIODARONE HCL 200 MG TABLET PO SCH (09:27)
[2016-10-26] MEDS: DILTIAZEM HCL 120 MG CAP.SR.24H PO SCH (09:27)
[2016-10-26] MEDS: LOSARTAN POTASSIUM 50 MG TABLET (COZAAR) PO SCH (09:28)
[2016-10-26] MEDS: ATORVASTATIN 20 MG TABLET PO SCH (09:28)
[2016-10-26] MEDS: hydrALAZINE HCL 25 MG TABLET PO SCH (09:29)
[2016-10-26] MEDS: FERROUS SULFATE 325 MG TABLET.DR PO SCH (09:29)
[2016-10-26] MEDS: LABETALOL HCL 100 MG TABLET PO SCH (09:30)
--- NOTE | 2016-10-26 09:40 | NUR ---
RN Rounds: AM meds given per MD order. No acute signs of distress noted. Pt tolerates meds well. Call light in reach. Bed alarm on. Fall precautions in place. Continue to monitor pt closely.
[2016-10-26] MEDS ORDERED: LABE200T28 PO (09:53)
[2016-10-26] MEDS ORDERED: FURO-150 PO (09:59)
[2016-10-26] MEDS ORDERED: HYDR-4039 PO (09:59)
[2016-10-26 11:04] VITALS: BP 159/80; PULSE 63; RESP 20; TEMP 97.6; O2SAT 100
[2016-10-26 11:30] VITALS: BP 160/80; PULSE 63; RESP 20; TEMP 97.6; O2SAT 100
--- NOTE | 2016-10-26 12:25 | NUR ---
D/C Patient Patient given medication reconciliation form and D/C instructions. Exit Care provided. Patient verbalized understanding. MD discussed with patient the results and treatment provided. Ambulatory with steady gait for discharge to home. Patient in stable condition, ID band removed. IV catheter removed, intact and dressing applied, no active bleeding. Rx given. Patient and educated on pain management. All belongings sent with patient.
--- NOTE | 2016-11-04 09:21 | NUR ---
Discharge Follow Up Phone Call [employer] phoned patient, , on 11/02/16, 11/03/16, and 11/04/16 and left voicemail messages with offer of assistance and Social Service contact information. No further calls will be made.
== END 2016-10-26 12:25 | disposition home or self-care (01) | DRG 425 ==
LOC: SED 18:56 → STU 22:26 → SMU 10-24 22:15
DX: E87.1 Hypo-osmolality and hyponatremia (principal); E11.22 Type 2 diabetes mellitus with diabetic chronic kidney disease; I50.32 Chronic diastolic (congestive) heart failure; F03.90 Unspecified dementia, unspecified severity, without behavioral disturbance, psychotic disturbance, mood disturbance, and anxiety; E11.65 Type 2 diabetes mellitus with hyperglycemia; I48.91 Unspecified atrial fibrillation; I13.0 Hypertensive heart and chronic kidney disease with heart failure and stage 1 through stage 4 chronic kidney disease, or unspecified chronic kidney disease; R55 Syncope and collapse; E78.5 Hyperlipidemia, unspecified; I44.0 Atrioventricular block, first degree; E87.6 Hypokalemia; E87.8 Other disorders of electrolyte and fluid balance, not elsewhere classified; N18.9 Chronic kidney disease, unspecified; D64.9 Anemia, unspecified; Z95.0 Presence of cardiac pacemaker; I25.2 Old myocardial infarction; Z79.84 Long term (current) use of oral hypoglycemic drugs; Z79.899 Other long term (current) drug therapy
CPT/HCPCS: 36415; 70450-TC; 80048; 80053; 81000-TC; 82570-TC; 82962; 83605; 83735-TC; 83880; 83935-TC; 84295-TC; 84302-TC; 84443-TC; 84484; 85025; 87040-TC; 87081; 87086; 93005; 96360; 96361; 99285; J0696; J1815; J3480; J3490; J7030; J7050; J7060

== ENCOUNTER 2016-10-28 20:57 | Emergency (ER) | payer MEDICAID ==
[2016-03-30 12:30] VITALS: Ht 165.1 cm; Wt 85.7 kg
[~2016-10-28] VITALS: Ht 165.1 cm; Wt 85.7 kg
[~2016-10-28 20:57] MED LIST changes: +FURO-150 PO; +HYDR-4039 PO
[2016-10-28 21:07] VITALS: BP 143/66; PULSE 65; RESP 18; TEMP 98.9; O2SAT 99
[2016-10-28 22:00] LABS: BASOPHILS % (AUTO) 0.3 % (0.0-2.0); EOSINOPHILS # (AUTO) 0.1 K/uL (0.0-0.4); HEMATOCRIT 30.1 % (36-48); HEMOGLOBIN 10.5 g/dL (12.0-16.0); LYMPHOCYTES # (AUTO) 0.3 K/uL (1.0-5.5); LYMPHOCYTES % (AUTO) 3.6 % (20.5-51.5); MEAN CORPUSCULAR HEMOGLOBIN 33 pg (27-31); MEAN CORPUSCULAR HGB CONC 35 % (32-36); MEAN CORPUSCULAR VOLUME 95 fL (79.0-98.0); MONOCYTES # (AUTO) 0.7 K/uL (0.0-1.0); MONOCYTES % (AUTO) 9.5 % (1.7-9.3); NEUTROPHILS % (AUTO) 85.6 % (40.0-70.0); PLATELET COUNT (AUTO) 365 K/uL (130-430); RED BLOOD CELL COUNT(AUTO) 3.17 MIL/uL (4.2-6.2); RED CELL DISTRIBUTION WIDTH 12.6 % (9.0-15.0); WHITE BLOOD COUNT (AUTO) 7.1 K/uL (4.8-10.8)
[2016-10-28 22:09] LABS: INR 1.1 (0.8-1.2); PROTHROMBIN TIME 11.6 SECS (9.5-12.5)
[2016-10-28 22:21] LABS: ANION GAP 12 (5-15); CALCIUM 9.3 mg/dL (8.4-11.0); CHLORIDE 96 mmol/L (98-107); CREATININE 1.27 mg/dL (0.55-1.30); GLUCOSE 99 mg/dL (70-99); POTASSIUM 3.5 mmol/L (3.5-5.1); SODIUM SERUM 132 mmol/L (136-145); UREA NITROGEN, BLOOD 16 mg/dL (8-21)
[2016-10-28 22:26] LABS: ALANINE AMINOTRANSFERASE 101 U/L (12-78); ALBUMIN 3.7 g/dL (3.4-4.8); ASPARTATE AMINOTRANSFERASE 52 U/L (10-37); TOTAL BILIRUBIN 0.3 mg/dL (0.0-1.0); TOTAL PROTEIN, SERUM 7.3 g/dL (6.4-8.3)
--- NOTE | 2016-10-28 23:55 | NUR ---
Patient to ER bed 8 to gown for evaluation. Side rails up. Report given to CHICHI Chandler.
--- NOTE | 2016-10-29 | NUR ---
PER GRAND DAUGHTER, PT IS WEAK W/ +N/V. UNABLE TO AMBULATE
[2016-10-29] MEDS ORDERED: NACL 0.9% 1,000 ML IV ONE (00:30)
--- NOTE | 2016-10-29 00:49 | NUR ---
ER at bedside examining patient.
--- NOTE | 2016-10-29 01:00 | NUR ---
# 22 gauge angiocath placed to R forearm. Use of asceptic technique. Opsite placed over site. Blood return noted. Flushed with 10 cc of normal saline. No evidence of infiltration noted. Patient tolerated well.
[2016-10-29 01:30] LABS: BILIRUBIN,URINE NEGATIVE (NEGATIVE); BLOOD, URINE NEGATIVE (NEGATIVE); CLARITY/URINE SL HAZY (CLEAR); COLOR,URINE YELLOW (YELLOW); GLUCOSE,URINE NEGATIVE (NEGATIVE); KETONES,URINE TRACE (NEGATIVE); LEUKOCYTE ESTERASE ,URINE NEGATIVE (NEGATIVE); NITRITE, URINE NEGATIVE (NEGATIVE); PH,URINE 5.5 (5.0-8.0); PROTEIN URINE 2+ (NEGATIVE); UROBILINOGEN,URINE 0.2 (0.2-1.0)
[2016-10-29] MEDS ORDERED: APIX2.5T PO (01:30)
[2016-10-29] MEDS ORDERED: DILT120C2 PO (01:30)
[2016-10-29 01:38] LABS: BACTERIA,URINE FEW /HPF (None Seen); MUCUS,URINE None Seen /LPF (None Seen); RBC,URINE 0-3 /HPF (0-3); WBC,URINE 0-3 /HPF (0-3)
[2016-10-29 03:45] VITALS: BP 123/62; PULSE 66; RESP 18; TEMP 98.2; O2SAT 99
--- NOTE | 2016-10-29 03:46 | NUR ---
Patient given written and verbal discharge instructions and verbalizes understanding. ER MD discussed with patient the results and treatment provided. Patient in stable condition. ID arm band removed. IV catheter removed intact and dressing applied, no active bleeding. Rx of Zofran, Prednisone given. Patient educated on pain management and to follow up with PMD. Pain Scale 0/10. Opportunity for questions provided and answered.
== END 2016-10-29 03:45 | disposition home or self-care (01) ==
LOC: SED 20:57
DX: R11.2 Nausea with vomiting, unspecified (principal); R05 Cough; R53.1 Weakness; R42 Dizziness and giddiness; E11.9 Type 2 diabetes mellitus without complications; I10 Essential (primary) hypertension; E78.00 Pure hypercholesterolemia, unspecified; D64.9 Anemia, unspecified; Z79.01 Long term (current) use of anticoagulants
CPT/HCPCS: 36415; 71010; 80053; 81000; 82962; 83605; 84484; 85025; 85610; 85730; 87040; 87086; 96360; 99285; J7030; 93005

== ENCOUNTER 2017-01-27 13:11 | Emergency (ER) | payer MEDICAID ==
[~2017-01-27] VITALS: Ht 170.2 cm; Wt 72.6 kg
[~2017-01-27 13:11] MED LIST changes: -AMLO5TAB4 PO; -ASPI-1063 PO; -ATEN100T44 PO; -CAT.1 PO; -DABI150C PO; +DILT120C2 PO; -DILT120C89 PO; -FERR240T5 PO; -FURO-149 PO; -HYDR25TA4 PO; -MEMA28CA PO; -MULT-1164 PO; -OMEP20CA10 PO; -PRED20TA PO
[2017-01-27 13:15] VITALS: BP_SYST 120
--- NOTE | 2017-01-27 13:15 | NUR ---
Pt BIB ALS, on spine board with C-collar in place. Placed to ER bed 07, report given to CHICHI Christina.
--- NOTE | 2017-01-27 13:20 | NUR ---
Patient brought in by ambulance for syncopal episode while washing dishes. Patient has full range of motion, denies nausea, vomitting,dizziness and pain. No other complaints/injuries per patient,none noted.
[2017-01-27] MEDS ORDERED: NACL 0.9% 1,000 ML IV SCH (13:25)
--- NOTE | 2017-01-27 13:25 | NUR ---
Pt. to ER BIB ALS for Fall r/t possible syncope, as per daughter pt. was at home in the kitchen area and probably had a dizzy spell and fell unwitnessed, no complaints of pain, no abrasions noted, skin intact warm to touch, denies SOB, denies CP, denies N/V/D, on engine monitor
--- NOTE | 2017-01-27 13:30 | NUR ---
Dr. Mcintosh at bedside examining the pt.
[2017-01-27 13:45] LABS: BASOPHILS % (AUTO) 0.3 % (0.0-2.0); EOSINOPHILS # (AUTO) 0.1 K/uL (0.0-0.4); EOSINOPHILS % (AUTO) 1.8 % (0.0-4.0); HEMATOCRIT 31.5 % (36-48); HEMOGLOBIN 10.6 g/dL (12.0-16.0); LYMPHOCYTES # (AUTO) 0.4 K/uL (1.0-5.5); LYMPHOCYTES % (AUTO) 7.7 % (20.5-51.5); MEAN CORPUSCULAR HEMOGLOBIN 32 pg (27-31); MEAN CORPUSCULAR HGB CONC 34 % (32-36); MEAN CORPUSCULAR VOLUME 94 fL (79.0-98.0); MONOCYTES # (AUTO) 0.4 K/uL (0.0-1.0); NEUTROPHILS # (AUTO) 3.9 K/uL (1.8-7.7); NEUTROPHILS % (AUTO) 81.2 % (40.0-70.0); PLATELET COUNT (AUTO) 344 K/uL (130-430); RED BLOOD CELL COUNT(AUTO) 3.34 MIL/uL (4.2-6.2); RED CELL DISTRIBUTION WIDTH 13.4 % (9.0-15.0); WHITE BLOOD COUNT (AUTO) 4.8 K/uL (4.8-10.8)
[2017-01-27 13:53] LABS: ANION GAP 7 (5-15); CALCIUM 8.6 mg/dL (8.4-11.0); GLUCOSE 304 mg/dL (70-99); POTASSIUM 3.3 mmol/L (3.5-5.1); UREA NITROGEN, BLOOD 18 mg/dL (8-21)
[2017-01-27 13:54] LABS: CREATININE 1.32 mg/dL (0.55-1.30)
[2017-01-27 13:57] LABS: PROTHROMBIN TIME 11.3 SECS (9.5-12.5)
[2017-01-27 13:59] LABS: ALANINE AMINOTRANSFERASE 54 U/L (12-78); ALBUMIN 3.2 g/dL (3.4-4.8); ASPARTATE AMINOTRANSFERASE 31 U/L (10-37); TOTAL BILIRUBIN 0.6 mg/dL (0.0-1.0); TOTAL PROTEIN, SERUM 6.4 g/dL (6.4-8.3)
[2017-01-27] MEDS ORDERED: NS 500 ML IV ONE (14:00)
[2017-01-27 14:01] LABS: ALCOHOL, BLOOD < 3 mg/dL (<10)
[2017-01-27 14:04] LABS: SODIUM SERUM 119 mmol/L (136-145)
[2017-01-27 14:05] LABS: CHLORIDE 83 mmol/L (98-107)
--- NOTE | 2017-01-27 14:06 | NUR ---
pt. presented with # [address] flushed with 10cc NS intact no infiltration noted Fluids running at the time, pt. tolerating well Addendum: 01/27/17 at 1424 by ESAU presented with [address]
[2017-01-27 14:09] LABS: ACETAMINOPHEN 2 ug/mL (1-30)
[2017-01-27] MEDS ORDERED: MAGNESIUM OXIDE 400 MG TABLET PO ONE (14:15)
[2017-01-27] MEDS ORDERED: POTASSIUM CHLORIDE 20 MEQ TAB.PRT.SR PO ONE (14:15)
[2017-01-27 14:23] LABS: SALICYLATE < 1 mg/dL (3-30)
--- NOTE | 2017-01-27 14:23 | NUR ---
pt. to restroom with assistance, tolerated well
--- NOTE | 2017-01-27 14:34 | NUR ---
X RAY AT BEDSIDE
--- NOTE | 2017-01-27 15:45 | NUR ---
Pt. states she is feeling much better, ambulatory to bathroom without assistance, tolerated well
[2017-01-27 15:52] LABS: BILIRUBIN,URINE NEGATIVE (NEGATIVE); BLOOD, URINE NEGATIVE (NEGATIVE); CLARITY/URINE SL HAZY (CLEAR); COLOR,URINE YELLOW (YELLOW); GLUCOSE,URINE NEGATIVE (NEGATIVE); KETONES,URINE NEGATIVE (NEGATIVE); LEUKOCYTE ESTERASE ,URINE 1+ (NEGATIVE); NITRITE, URINE NEGATIVE (NEGATIVE); PH,URINE 6.5 (5.0-8.0); PROTEIN URINE 2+ (NEGATIVE); UROBILINOGEN,URINE 0.2 (0.2-1.0)
[2017-01-27 16:12] LABS: BACTERIA,URINE FEW /HPF (None Seen); RBC,URINE NONE SEEN /HPF (0-3)
[2017-01-27 16:13] LABS: FINE GRANULAR CASTS,URINE 0-10 /LPF (None Seen); MUCUS,URINE 1+ /LPF (None Seen)
[2017-01-27 16:14] LABS: HYALINE CASTS, URINE 0-10 /LPF (None Seen)
[2017-01-27 17:00] VITALS: BP_SYST 118
--- NOTE | 2017-01-27 17:00 | NUR ---
Patient given written and verbal discharge instructions and verbalizes understanding. ER MD discussed with patient the results and treatment provided. Patient in stable condition. ID arm band removed. IV catheter removed intact and dressing applied, no active bleeding. No Rx given. Patient educated on pain management and to follow up with PMD. Pain Scale 0/10 Opportunity for questions provided and answered.
== END 2017-01-27 17:00 | disposition home or self-care (01) ==
LOC: SED 13:11
DX: R55 Syncope and collapse (principal); E87.1 Hypo-osmolality and hyponatremia; E87.6 Hypokalemia; E11.9 Type 2 diabetes mellitus without complications; I10 Essential (primary) hypertension; E78.00 Pure hypercholesterolemia, unspecified; Z96.89 Presence of other specified functional implants; Z79.899 Other long term (current) drug therapy
CPT/HCPCS: 36415; 71010; 80053; 81000; 84484; 85025; 85610; 85730; 87086; 93005; 96360; 99285; G0480; G0481; G0482; J7030; J7040